=== PATIENT | female | born 1960 | race Two or more races ===

== ENCOUNTER → 2024-09-16 | Outpatient (CLI) | payer MEDICARE, MEDICAID | LOC: M SOG 08:35 | PROVIDERS: ATTEND Physician Assistant | DX: M25.561 Pain in right knee (principal); M19.071 Primary osteoarthritis, right ankle and foot ==

== ENCOUNTER → 2024-10-04 | Outpatient (CLI) | payer MEDICARE, MEDICAID | LOC: M SLEEP HO 09:43 | PROVIDERS: ATTEND Internal Medicine Critical Care Medicine | DX: G47.30 Sleep apnea, unspecified (principal); R09.02 Hypoxemia | CPT/HCPCS: 36600; 82803; 94010; 94200; 94726; 94729; G0399 ==

== ENCOUNTER → 2025-01-11 | Outpatient (CLI) | payer MEDICARE, MEDICAID | LOC: M SLEEP 20:00 | PROVIDERS: ATTEND Internal Medicine Critical Care Medicine | DX: G47.31 Primary central sleep apnea (principal); G47.33 Obstructive sleep apnea (adult) (pediatric) ==